=== PATIENT | female | born 1960 | race Caucasian/White ===

== ENCOUNTER 2016-08-22 07:55 | Day surgery (SDC) | payer OTHER ==
[2016-08-21 14:39] VITALS: BMI 19.8
[2016-08-22 08:19] VITALS: TEMP 97.5
[2016-08-22] MEDS ORDERED: LIDOCAINE HCL/PF 2% SDV 5ML VIAL ONE (08:34)
[2016-08-22] MEDS ORDERED: PROPOFOL 20 ML ONE ×3 (08:34)
[2016-08-22 10:16] VITALS: BP 105/57; PULSE 54
== END 2016-08-22 10:30 | disposition home or self-care (01) ==
LOC: JASU-ENDO 07:55
PROVIDERS: ATTEND Internal Medicine Gastroenterology
PROC: 0DJD8ZZ Inspection of Lower Intestinal Tract, Via Natural or Artificial Opening Endoscopic (ICD-10-PCS; principal; 2016-08-22 09:00)
DX: Z86.010 Personal history of colon polyps (principal); K57.30 Diverticulosis of large intestine without perforation or abscess without bleeding

== ENCOUNTER 2021-08-30 04:15 | Day surgery (SDC) | payer BC ==
[2021-08-28 14:55] VITALS: BMI 20.2
[2021-08-30 09:40] VITALS: BP 126/68; PULSE 62; TEMP 98.2
== END 2021-08-30 10:02 | disposition home or self-care (01) ==
LOC: JASU-ENDO 04:15
PROVIDERS: ATTEND Internal Medicine Gastroenterology
PROC: 0DJD8ZZ Inspection of Lower Intestinal Tract, Via Natural or Artificial Opening Endoscopic (ICD-10-PCS; principal; 2021-08-30 08:00)
DX: Z12.11 Encounter for screening for malignant neoplasm of colon (principal); K63.89 Other specified diseases of intestine; K57.30 Diverticulosis of large intestine without perforation or abscess without bleeding; Z86.010 Personal history of colon polyps